=== PATIENT | female | born 1975 | race Caucasian/White ===

== ENCOUNTER → 2016-10-14 | Outpatient (REF) | payer OTHER ==
[2016-10-14 13:21] LABS: MEAN CORPUSCULAR HEMOGLOBIN 28.5 pg (27.0-33.0); MEAN CORPUSCULAR HGB CONC 33.3 g/dl (32.0-36.5); MEAN CORPUSCULAR VOLUME 85.4 fl (80.0-96.0); RED CELL DISTRIBUTION WIDTH 12.8 % (11.5-14.5); WHITE BLOOD COUNT 7.9 K/mm3 (4.0-10.0)
[2016-10-14 14:15] LABS: ALBUMIN 4.3 GM/DL (3.2-5.2); ALBUMIN/GLOBULIN RATIO 1.26 (1.00-1.93); ALKALINE PHOSPHATASE 39 U/L (45-117); ALT/SGPT 38 U/L (12-78); ANION GAP 6 MEQ/L (8-16); AST/SGOT 14 U/L (15-37); BILIRUBIN,TOTAL 0.4 MG/DL (0.2-1.0); BLOOD UREA NITROGEN 13 MG/DL (7-18); CALCIUM LEVEL 9.1 MG/DL (8.5-10.1); CARBON DIOXIDE LEVEL 31 MEQ/L (21-32); CHLORIDE LEVEL 106 MEQ/L (98-107); CHOLESTEROL LEVEL 163 MG/DL (<200); CREATININE FOR GFR 0.89 MG/DL (0.55-1.02); GLOMERULAR FILTRATION RATE > 60.0 (>58); GLUCOSE, FASTING 99 MG/DL (70-105); POTASSIUM SERUM 4.1 MEQ/L (3.5-5.1); SODIUM LEVEL 143 MEQ/L (136-145); T UPTAKE 33 % (30-39); THYROXINE (T4) 9.8 UG/DL (4.5-12.0); TOTAL PROTEIN 7.7 GM/DL (6.4-8.2); TRIGLYCERIDES LEVEL 69 MG/DL (<150)
[2016-10-16 00:07] LABS: Lyme Disease IgG Ab 18 kDa Ban Absent (.); Lyme Disease IgG Ab 23 kDa Ban Absent (.); Lyme Disease IgG Ab 28 kDa Ban Absent (.); Lyme Disease IgG Ab 30 kDa Ban Absent (.); Lyme Disease IgG Ab 39 kDa Ban Absent (.); Lyme Disease IgG Ab 41 kDa Ban Present (.); Lyme Disease IgG Ab 45 kDa Ban Absent (.); Lyme Disease IgG Ab 58 kDa Ban Absent (.); Lyme Disease IgG Ab 66 kDa Ban Absent (.); Lyme Disease IgG Ab 93 kDa Ban Absent (.); Lyme Disease IgG West Blot Int Negative (.); Lyme Disease IgG/IgM Antibodie <0.91 ISR (0.00-0.90); Lyme Disease IgM Ab 23 kDa Ban Present (.); Lyme Disease IgM Ab 39 kDa Ban Absent (.); Lyme Disease IgM Ab 41 kDa Ban Present (.); Lyme Disease IgM West Blot Int Positive (.)
== END ==
LOC: M SFHCCLAY 09:11
PROVIDERS: ATTEND Nurse Practitioner Family
DX: M25.50 Pain in unspecified joint (principal); R53.83 Other fatigue; Z13.6 Encounter for screening for cardiovascular disorders; J02.9 Acute pharyngitis, unspecified

== ENCOUNTER → 2017-01-20 | Outpatient (REF) | payer OTHER ==
[~2017-01-20] MED LIST: AMOX PO; BACT800T5 PO; CETI10TA; FLUT1SPR2
[2017-01-20 18:03] LABS: MEAN CORPUSCULAR HEMOGLOBIN 27.9 pg (27.0-33.0); MEAN CORPUSCULAR HGB CONC 33.6 g/dl (32.0-36.5); RED CELL DISTRIBUTION WIDTH 12.8 % (11.5-14.5)
[2017-01-20 18:07] LABS: ALBUMIN 4.3 GM/DL (3.2-5.2); ALBUMIN/GLOBULIN RATIO 1.13 (1.00-1.93); ALKALINE PHOSPHATASE 44 U/L (45-117); ALT/SGPT 37 U/L (12-78); ANION GAP 7 MEQ/L (8-16); AST/SGOT 16 U/L (15-37); BILIRUBIN,TOTAL 0.5 MG/DL (0.2-1.0); BLOOD UREA NITROGEN 13 MG/DL (7-18); CALCIUM LEVEL 9.2 MG/DL (8.5-10.1); CARBON DIOXIDE LEVEL 30 MEQ/L (21-32); CHLORIDE LEVEL 103 MEQ/L (98-107); CREATININE FOR GFR 0.82 MG/DL (0.55-1.02); GLOMERULAR FILTRATION RATE > 60.0 (>58); GLUCOSE, FASTING 80 MG/DL (70-105); POTASSIUM SERUM 3.9 MEQ/L (3.5-5.1); SODIUM LEVEL 140 MEQ/L (136-145); TOTAL PROTEIN 8.1 GM/DL (6.4-8.2); URIC ACID 6.4 MG/DL (2.6-6.0)
== END ==
LOC: M SFHCCLAY 12:28
PROVIDERS: ATTEND Nurse Practitioner Family
DX: R50.9 Fever, unspecified (principal); M25.50 Pain in unspecified joint

== ENCOUNTER 2017-01-22 10:49 | Emergency (ER) | payer OTHER ==
[~2017-01-22] VITALS: Ht 167.6 cm; Wt 94.5 kg
[2017-01-22] MEDS ORDERED: CETI10TA (11:02)
[2017-01-22] MEDS ORDERED: FLUT1SPR2 (11:02)
[2017-01-22] MEDS ORDERED: AMOX PO (11:02)
[2017-01-22 11:50] LABS: BASO % 0.3 % (0.0-1.0); EOS # 0.2 10^3/uL (0.0-0.50); EOS % 2.7 % (0.0-3.0); IMMATURE GRANULOCYTE % 0.2 % (0-0); LYMPH # 1.3 10^3/uL (1.5-4.5); LYMPH % 14.4 % (24.0-44.0); MEAN CORPUSCULAR HEMOGLOBIN 27.8 pg (27.0-33.0); MEAN CORPUSCULAR HGB CONC 33.7 g/dl (32.0-36.5); MEAN CORPUSCULAR VOLUME 82.7 fl (80.0-96.0); MONO # 0.9 10^3/uL (0.0-0.8); MONO % 9.9 % (0.0-5.0); NEUTROPHILS # 6.4 10^3/uL (1.8-7.7); NEUTROPHILS % 72.5 % (36.0-66.0); PLATELET COUNT, AUTOMATED 226 10^3/uL (150-450); RED CELL DISTRIBUTION WIDTH 12.8 % (11.5-14.5); WHITE BLOOD COUNT 8.9 10^3/uL (4.0-10.0)
[2017-01-22 11:54] LABS: ADD MANUAL DIFFER NO; DIFF SLIDE NUMBER 147
[2017-01-22 12:19] LABS: ANION GAP 5 MEQ/L (8-16); BLOOD UREA NITROGEN 11 MG/DL (7-18); CARBON DIOXIDE LEVEL 29 MEQ/L (21-32); CHLORIDE LEVEL 106 MEQ/L (98-107); CREATININE FOR GFR 0.63 MG/DL (0.55-1.02); GLOMERULAR FILTRATION RATE > 60.0 (>58); GLUCOSE, FASTING 94 MG/DL (70-105); POTASSIUM SERUM 4.1 MEQ/L (3.5-5.1); SODIUM LEVEL 140 MEQ/L (136-145)
[2017-01-22] MEDS ORDERED: BACT800T5 PO (12:38)
[2017-01-22 12:51] VITALS: BP 136/90
== END 2017-01-22 12:59 | disposition home or self-care (01) ==
LOC: M ED 10:49
DX: L03.116 Cellulitis of left lower limb (principal); J31.0 Chronic rhinitis; A69.20 Lyme disease, unspecified; Z88.1 Allergy status to other antibiotic agents

== ENCOUNTER → 2017-02-01 | Outpatient (REF) | payer OTHER ==
[2017-02-01 16:22] LABS: BASO # 0.1 10^3/uL (0.0-0.2); BASO % 1.2 % (0.0-1.0); EOS # 0.4 10^3/uL (0.0-0.50); EOS % 6.5 % (0.0-3.0); IMMATURE GRANULOCYTE % 0.6 % (0-0); LYMPH # 2.2 10^3/uL (1.5-4.5); LYMPH % 32.6 % (24.0-44.0); MEAN CORPUSCULAR HEMOGLOBIN 27.2 pg (27.0-33.0); MEAN CORPUSCULAR HGB CONC 32.3 g/dl (32.0-36.5); MEAN CORPUSCULAR VOLUME 84.2 fl (80.0-96.0); MONO # 0.6 10^3/uL (0.0-0.8); MONO % 9.3 % (0.0-5.0); NEUTROPHILS # 3.4 10^3/uL (1.8-7.7); NEUTROPHILS % 49.8 % (36.0-66.0); PLATELET COUNT, AUTOMATED 320 10^3/uL (150-450); RED CELL DISTRIBUTION WIDTH 12.8 % (11.5-14.5); WHITE BLOOD COUNT 6.8 10^3/uL (4.0-10.0)
[2017-02-01 16:51] LABS: ERYTHROCYTE SEDIMENTATION RATE 14 mm/hr (0-20)
== END ==
LOC: M SFHCCLAY 14:04
PROVIDERS: ATTEND Family Medicine
DX: L03.116 Cellulitis of left lower limb (principal)

== ENCOUNTER → 2017-02-03 | Outpatient (REF) | payer OTHER ==
[2017-02-03 14:01] LABS: FOLATE 10.2 NG/ML (>5.4); VITAMIN B12 LEVEL 1015 PG/ML (247-911)
[2017-02-03 14:20] LABS: FREE T4 0.99 NG/DL (0.76-1.46); TOTAL PROTEIN 8.2 GM/DL (6.4-8.2)
[2017-02-04 13:58] LABS: ALBUMIN % 59.5 % (55.8-66.1); GAMMA GLOBULIN % 16.3 % (11.1-18.8)
[2017-02-04 13:59] LABS: ALBUMIN 4.88 GM/DL (3.29-5.55)
[2017-02-08 00:11] LABS: Lyme Disease IgG Ab 18 kDa Ban Absent (.); Lyme Disease IgG Ab 23 kDa Ban Absent (.); Lyme Disease IgG Ab 28 kDa Ban Absent (.); Lyme Disease IgG Ab 30 kDa Ban Absent (.); Lyme Disease IgG Ab 39 kDa Ban Absent (.); Lyme Disease IgG Ab 41 kDa Ban Present (.); Lyme Disease IgG Ab 45 kDa Ban Absent (.); Lyme Disease IgG Ab 58 kDa Ban Present (.); Lyme Disease IgG Ab 66 kDa Ban Absent (.); Lyme Disease IgG Ab 93 kDa Ban Absent (.); Lyme Disease IgG West Blot Int Negative (.); Lyme Disease IgG/IgM Antibodie <0.91 ISR (0.00-0.90); Lyme Disease IgM Ab 23 kDa Ban Present (.); Lyme Disease IgM Ab 39 kDa Ban Absent (.); Lyme Disease IgM Ab 41 kDa Ban Present (.); Lyme Disease IgM Ab Quantitati 1.08 index (0.00-0.79); Lyme Disease IgM West Blot Int Positive (.); SJOGREN'S ANTI SS-A <0.2 AI (0.0-0.9); SJOGREN'S ANTI SS-B <0.2 AI (0.0-0.9); VITAMIN E LEVEL 8.4 mg/L (5.3-16.8)
== END ==
LOC: M LABNEURO 10:04
PROVIDERS: ATTEND Psychiatry & Neurology Neurology
DX: R53.1 Weakness (principal); R20.2 Paresthesia of skin; R41.3 Other amnesia; M35.9 Systemic involvement of connective tissue, unspecified

== ENCOUNTER → 2017-03-03 | Outpatient (REF) | payer OTHER ==
[2017-03-03 16:07] LABS: ALBUMIN 4.6 GM/DL (3.2-5.2); ALBUMIN/GLOBULIN RATIO 1.44 (1.00-1.93); ALKALINE PHOSPHATASE 41 U/L (45-117); ALT/SGPT 34 U/L (12-78); ANION GAP 7 MEQ/L (8-16); AST/SGOT 13 U/L (7-37); BILIRUBIN,TOTAL 0.5 MG/DL (0.2-1.0); BLOOD UREA NITROGEN 10 MG/DL (7-18); CALCIUM LEVEL 9.9 MG/DL (8.5-10.1); CARBON DIOXIDE LEVEL 30 MEQ/L (21-32); CHLORIDE LEVEL 105 MEQ/L (98-107); CREATININE FOR GFR 0.84 MG/DL (0.55-1.02); GLOMERULAR FILTRATION RATE > 60.0 (>58); GLUCOSE, FASTING 78 MG/DL (70-105); IMMUNOGLOBULIN G 1200 MG/DL (681-1648); IMMUNOGLOBULIN M 212 MG/DL (40-230); POTASSIUM SERUM 3.9 MEQ/L (3.5-5.1); SODIUM LEVEL 142 MEQ/L (136-145); TOTAL PROTEIN 7.8 GM/DL (6.4-8.2)
== END ==
LOC: M SFHCPLAZ 12:25
PROVIDERS: ATTEND Internal Medicine Infectious Disease
DX: L03.90 Cellulitis, unspecified (principal); J32.9 Chronic sinusitis, unspecified; M54.5 Low back pain; Z86.19 Personal history of other infectious and parasitic diseases

== ENCOUNTER → 2017-03-11 | Outpatient (CLI) | payer OTHER ==
[~2017-03-11] MED LIST changes: +GASTROGRAFIN SOLUTION 30ML (Q9963) As Ordered ONE; +ISOVUE-370 76% 100ML VIAL (Q9967) As Ordered ONE
--- NOTE | 2017-03-11 20:54 | REP ---
CT ABDOMEN AND PELVIS WITH AND WITHOUT CONTRAST: TECHNIQUE: Axial noncontrast images through the abdomen followed by contrast-enhanced images through the abdomen and pelvis using 100 mL Isovue 370 intravenous contrast material, with coronal and sagittal reformations. There is mild interstitial fibrotic change in the visualized lung bases. There is diffuse fatty infiltration of the liver. Gallbladder is grossly unremarkable. There does not appear to be a significant biliary dilatation. The spleen, adrenals, pancreas and left kidney appear unremarkable. There is no hydronephrosis bilaterally. There is a subcentimeter calculus in the lower pole collecting system of the right kidney. Ureters do not appear to be dilated. Urinary bladder is distended with no gross abnormality. There is no abdominal aortic aneurysm. There is no adenopathy. There is no free air or free fluid. I see no bowel wall thickening. I see no pelvic mass. IMPRESSION: Diffuse fatty infiltration of the liver. Subcentimeter calculus lower pole collecting system right kidney. No adenopathy. No free air or free fluid. No bowel wall thickening or inflammation. No pelvic mass. Signed by Dre Gutierrez MD 03/12/2017 11:56 A
== END ==
LOC: M RAD 17:27
PROVIDERS: ATTEND Internal Medicine Infectious Disease
DX: K76.0 Fatty (change of) liver, not elsewhere classified (principal); N20.0 Calculus of kidney
CPT/HCPCS: 74178; Q9963; Q9967

== ENCOUNTER → 2017-04-06 | Outpatient (REF) | payer OTHER ==
[~2017-04-06] MED LIST changes: -GASTROGRAFIN SOLUTION 30ML (Q9963) As Ordered ONE; -ISOVUE-370 76% 100ML VIAL (Q9967) As Ordered ONE
== END ==
LOC: M SFHCPLAZ 10:53
PROVIDERS: ATTEND Internal Medicine Infectious Disease
DX: R06.02 Shortness of breath (principal)

== ENCOUNTER → 2017-04-20 | Outpatient (CLI) | payer OTHER | LOC: M RAD 16:26 | DX: J84.10 Pulmonary fibrosis, unspecified (principal); K76.1 Chronic passive congestion of liver | CPT/HCPCS: 71250 ==

== ENCOUNTER → 2017-11-09 | Outpatient (CLI) | payer OTHER | LOC: M RAD 14:15 | DX: J32.0 Chronic maxillary sinusitis (principal) | CPT/HCPCS: 70486 ==

== ENCOUNTER → 2017-11-28 | Outpatient (CLI) | payer OTHER ==
[2017-11-28 12:16] LABS: HEMATOCRIT 43.5 % (36.0-47.0); HEMOGLOBIN 14.5 g/dl (12.0-15.5); MEAN CORPUSCULAR HEMOGLOBIN 27.6 pg (27.0-33.0); MEAN CORPUSCULAR HGB CONC 33.3 g/dl (32.0-36.5); MEAN CORPUSCULAR VOLUME 82.7 fl (80.0-96.0); PLATELET COUNT, AUTOMATED 276 10^3/uL (150-450); RED BLOOD COUNT 5.26 10^6/uL (4.00-5.40); RED CELL DISTRIBUTION WIDTH 13.1 % (11.5-14.5); RETIC HEMOGLOBIN EQUIVALENT 33.1 pg (24-36); RETICULOCYTE % 1.9 % (0.5-1.5); WHITE BLOOD COUNT 6.9 10^3/uL (4.0-10.0)
[2017-11-28 12:32] LABS: TOTAL 25(OH) VITAMIN D 27.9 NG/ML (30.0-100.0)
[2017-11-28 12:39] LABS: ALBUMIN 4.1 GM/DL (3.2-5.2); ALBUMIN/GLOBULIN RATIO 1.21 (1.00-1.93); ALKALINE PHOSPHATASE 37 U/L (45-117); ALT/SGPT 39 U/L (12-78); ANION GAP 7 MEQ/L (8-16); AST/SGOT 13 U/L (7-37); BILIRUBIN,TOTAL 0.4 MG/DL (0.2-1.0); BLOOD UREA NITROGEN 12 MG/DL (7-18); CARBON DIOXIDE LEVEL 30 MEQ/L (21-32); CHLORIDE LEVEL 109 MEQ/L (98-107); CHOLESTEROL LEVEL 168 MG/DL (<200); CHOLESTEROL RISK RATIO 2.896 (<5); CREATININE FOR GFR 0.84 MG/DL (0.55-1.30); FERRITIN 101 NG/ML (8-252); GLOMERULAR FILTRATION RATE > 60.0 (>58); GLUCOSE, FASTING 93 MG/DL (70-100); HDL CHOLESTEROL 58 MG/DL (>40); IRON (FE) 71 UG/DL (50-170); MAGNESIUM LEVEL 2.4 MG/DL (1.8-2.4); NON-HDL-C 110 MG/DL; PERCENT SATURATION 25.3 % (13.2-45.0); POTASSIUM SERUM 4.1 MEQ/L (3.5-5.1); SODIUM LEVEL 146 MEQ/L (136-145); TOTAL IRON BINDING CAPACITY 281 UG/DL (250-450); TOTAL PROTEIN 7.5 GM/DL (6.4-8.2); TRIGLYCERIDES LEVEL 100 MG/DL (<150)
[2017-11-28 13:09] LABS: ESTIMATED AVERAGE GLUCOSE 117 MG/DL (60-110); HEMOGLOBIN A1c 5.7 %
[2017-11-28 14:17] LABS: FOLATE 12.2 NG/ML
[2017-11-28 14:18] LABS: VITAMIN B12 LEVEL 657 PG/ML
== END ==
LOC: M LAB 11:07
DX: R53.82 Chronic fatigue, unspecified (principal); Z13.6 Encounter for screening for cardiovascular disorders
CPT/HCPCS: 82746

== ENCOUNTER 2017-12-24 18:39 | Emergency (ER) | payer OTHER ==
[2017-12-24] MEDS: valACYclovir HCL 500 MG TAB PO (19:15)
== END 2017-12-24 19:24 | disposition home or self-care (01) ==
LOC: M ED 18:39
DX: B02.9 Zoster without complications (principal); F41.9 Anxiety disorder, unspecified; Z87.891 Personal history of nicotine dependence; Z79.899 Other long term (current) drug therapy; Z88.1 Allergy status to other antibiotic agents
CPT/HCPCS: 99282

== ENCOUNTER → 2018-02-28 | Outpatient (CLI) | payer OTHER | LOC: M CLY 12:03 | DX: M51.37 Other intervertebral disc degeneration, lumbosacral region (principal) | CPT/HCPCS: 72110 ==

== ENCOUNTER 2018-04-22 15:08 | Emergency (ER) | payer OTHER ==
[~2018-04-22] VITALS: Ht 165.1 cm; Wt 95.3 kg
[2018-04-22 15:08] VITALS: BP 145/82
[~2018-04-22 15:08] MED LIST changes: +DULO1CAP2; +VALA1TAB2 PO
[2018-04-22] MEDS ORDERED: GABA-845 PO (15:14)
[2018-04-22] MEDS ORDERED: VITA-122 PO (15:30)
[2018-04-22] MEDS ORDERED: VALA1TAB2 PO (15:56)
== END 2018-04-22 17:09 | disposition home or self-care (01) ==
LOC: M ED 15:08
DX: B02.9 Zoster without complications (principal); Z87.891 Personal history of nicotine dependence; Z79.899 Other long term (current) drug therapy; Z88.1 Allergy status to other antibiotic agents

== ENCOUNTER → 2018-05-02 | Outpatient (REF) | payer OTHER ==
[~2018-05-02] MED LIST changes: +GABA-845 PO; +VITA-122 PO
[2018-05-06 00:08] LABS: MERCURY LEVEL None Detected ug/L (0.0-14.9)
== END ==
LOC: M SFHCCLAY 12:19
PROVIDERS: ATTEND Nurse Practitioner Family
DX: R53.83 Other fatigue (principal); E55.9 Vitamin D deficiency, unspecified

== ENCOUNTER 2018-05-16 16:17 | Emergency (ER) | payer OTHER ==
[~2018-05-16] VITALS: Ht 165.1 cm; Wt 96.4 kg
[2018-05-16] MEDS ORDERED: IBUPROFEN 600 MG TAB PO ONE (18:30)
[2018-05-16] MEDS ORDERED: traMADol 50 MG TAB PO ONE (18:30)
--- NOTE | 2018-05-16 18:48 | REPVR ---
EXAM: CT Cervical Spine Without Contrast EXAM DATE/TIME: 05/16/2018 6:24 PM CLINICAL HISTORY: 43 years old, female; Injury or trauma; Fall; Initial encounter; Blunt trauma; Additional info: Fall, PT tender, decr. Rom TECHNIQUE: Axial computed tomography images of the cervical spine without intravenous contrast. All CT scans at this facility use at least one of these dose optimization techniques: automated exposure control; mA and/or kV adjustment per patient size (includes targeted exams where dose is matched to clinical indication); or iterative reconstruction. Coronal and sagittal reformatted images were created and reviewed. COMPARISON: CR SPINE LS COMPLETE 02/28/2018 1:39 PM FINDINGS: Vertebrae: Mild degenerative disc disease and facet arthrosis at C6-C7. No fracture or subluxation. Discs/Spinal canal/Neural foramina: No spinal or neural foraminal bony stenosis. Soft tissues: Unremarkable. Lungs: Lung apices are normal. IMPRESSION: No fracture. Electronically signed by: Antoni Sanon On 05/16/2018 18:48:07 PM
[2018-05-16 19:34] VITALS: BP 133/95
--- NOTE | 2018-05-16 19:49 | REP ---
RIGHT WRIST, FOUR VIEWS: There is no evidence of an acute fracture, dislocation or intrinsic bone disease. IMPRESSION: No fracture or dislocation. Electronically Signed by Dre Gutierrez MD 05/16/2018 07:56 P
--- NOTE | 2018-05-16 19:51 | REP ---
RIGHT ANKLE, FOUR VIEWS: There is no evidence of an acute fracture, dislocation or intrinsic bone disease. There is moderate spurring of the posterior and inferior calcaneus. IMPRESSION: No fracture or dislocation. Electronically Signed by Dre Gutierrez MD 05/16/2018 07:56 P
--- NOTE | 2018-05-16 19:52 | REP ---
RIGHT SHOULDER, THREE VIEWS: There is no evidence of an acute fracture, dislocation or intrinsic bone disease. IMPRESSION: No fracture or dislocation. Electronically Signed by Dre Gutierrez MD 05/16/2018 07:57 P
--- NOTE | 2018-05-16 19:53 | REP ---
LEFT KNEE, FOUR VIEWS: FINDINGS: There is no evidence of an acute fracture, dislocation or intrinsic bone disease. IMPRESSION: No fracture or dislocation. Electronically Signed by Dre Gutierrez MD 05/16/2018 07:57 P
== END 2018-05-16 19:35 | disposition home or self-care (01) ==
LOC: M ED 16:17
DX: T14.8XXA Other injury of unspecified body region, initial encounter (principal); W01.0XXA Fall on same level from slipping, tripping and stumbling without subsequent striking against object, initial encounter; Y92.512 Supermarket, store or market as the place of occurrence of the external cause; Z88.1 Allergy status to other antibiotic agents; Z79.899 Other long term (current) drug therapy

== ENCOUNTER → 2018-06-14 | Outpatient (REF) | payer OTHER ==
[2018-06-14 17:19] LABS: HEMATOCRIT 43.6 % (36.0-47.0); HEMOGLOBIN 14.4 g/dl (12.0-15.5); MEAN CORPUSCULAR HEMOGLOBIN 27.7 pg (27.0-33.0); MEAN CORPUSCULAR VOLUME 83.8 fl (80.0-96.0); PLATELET COUNT, AUTOMATED 286 10^3/uL (150-450); WHITE BLOOD COUNT 8.1 10^3/uL (4.0-10.0)
[2018-06-14 17:30] LABS: ALBUMIN 4.2 GM/DL (3.2-5.2); ALT/SGPT 29 U/L (12-78); BILIRUBIN,TOTAL 0.3 MG/DL (0.2-1.0); BLOOD UREA NITROGEN 13 MG/DL (7-18); CALCIUM LEVEL 9.1 MG/DL (8.5-10.1); CARBON DIOXIDE LEVEL 30 MEQ/L (21-32); CHLORIDE LEVEL 108 MEQ/L (98-107); CHOLESTEROL LEVEL 157 MG/DL (<200); CHOLESTEROL RISK RATIO 2.754 (<5); FREE THYROXINE INDEX 2.8 % (1.3-4.8); GLOMERULAR FILTRATION RATE > 60.0 (>58); GLUCOSE, FASTING 79 MG/DL (70-100); HDL CHOLESTEROL 57 MG/DL (>40); LDL CHOLESTEROL 83 MG/DL (<100); NON-HDL-C 100 MG/DL; POTASSIUM SERUM 4.1 MEQ/L (3.5-5.1); SODIUM LEVEL 142 MEQ/L (136-145); T UPTAKE 31 % (30-39); THYROXINE (T4) 8.9 UG/DL (4.5-12.0); TOTAL PROTEIN 7.4 GM/DL (6.4-8.2); TRIGLYCERIDES LEVEL 86 MG/DL (<150)
[2018-06-14 17:31] LABS: TOTAL 25(OH) VITAMIN D 34.6 NG/ML (30.0-100.0)
== END ==
LOC: M SFHCCLAY 11:41
PROVIDERS: ATTEND Nurse Practitioner Family
DX: K21.9 Gastro-esophageal reflux disease without esophagitis (principal); F41.9 Anxiety disorder, unspecified; E55.9 Vitamin D deficiency, unspecified; R53.82 Chronic fatigue, unspecified; Z13.6 Encounter for screening for cardiovascular disorders

== ENCOUNTER → 2018-06-15 | Outpatient (CLI) | payer OTHER ==
--- NOTE | 2018-06-19 16:25 | SLEEPHOME ---
DATE OF PROCEDURE: 06/15/2018 ORDERED BY: Adri Parham Diagnostic home sleep testing was performed due to concern for the obstructive sleep apnea syndrome in this patient with a history of excessive somnolence, nonrestorative sleep and morning headaches. For testing, a nocturnal T3 respiratory monitoring device was used. Continuous record was made of pulse, oxygen saturation, airflow, chest, abdominal strain and body position. 9 hours and 59 minutes of data were reviewed. 8 hours and 26 minutes were marked as time in bed. During the interval marked time in bed, there was 65 respiratory events identified of 10 seconds in duration or greater for a respiratory event index of 10.1. The events were primarily obstructive. Baseline pulse rate 72 beats per minute, pulse rate ranged 54-103. Baseline saturation 90%, saturations (sats) fell as low as 76%. Testing was performed in both the supine and nonsupine positions. IMPRESSION: Abnormal home sleep testing with repetitive respiratory events and oxygen desaturations to 76% with a respiratory event index of 10.1 is consistent with the obstructive sleep apnea syndrome. RECOMMENDATIONS: The patient should be encouraged to undergo a formal sleep evaluation and in laboratory pressure titration.
== END ==
LOC: M SLEEP HO 09:50
PROVIDERS: ATTEND Nurse Practitioner Family
DX: R06.83 Snoring (principal); R40.0 Somnolence

== ENCOUNTER → 2018-07-11 | Outpatient (CLI) | payer OTHER ==
--- NOTE | 2018-07-11 15:00 | REP ---
MAXILLOFACIAL CT WITHOUT CONTRAST: HISTORY: Chronic maxillary sinusitis. COMPARISON: 11/09/2017. A small defect is present in the left uncinate process. This may be due to demineralization secondary to chronic sinusitis. Mild mucosal thickening is present in the left maxillary sinus. The remaining sinuses are clear. Mucosal thickening involves the left osteomeatal unit. The right osteomeatal unit is patent. The middle and inferior nasal turbinates are partially paradoxical. There is mild deviation of the nasal septum to the right. The nasal septum abuts the right inferior nasal turbinate. The cribriform plate, medial jade of the orbits and optic canals are intact. The carotid canals form a segment of the posterolateral jade of the sphenoid sinus. There is thickening and sclerosis of the jade of the left maxillary sinus consistent with chronic sinusitis. Periapical lucency involves the first molar tooth of the left maxilla. There is dehiscence of the lingular cortex. A defect is present in the floor of the left maxillary sinus consistent with an oroantral fistula. IMPRESSION: 1. Sinus mucosal thickening as described above. 2. There is a defect in the floor of the left maxillary sinus in the first molar region consistent with an oroantral fistula. Electronically Signed by Adama Baldwin MD 07/11/2018 03:04 P
== END ==
LOC: M RAD 14:10
PROVIDERS: ATTEND Otolaryngology
DX: J32.0 Chronic maxillary sinusitis (principal); J34.89 Other specified disorders of nose and nasal sinuses

== ENCOUNTER → 2018-10-02 | Outpatient (CLI) | payer OTHER ==
[2018-10-02 10:42] LABS: MONO SCRN NEGATIVE (NEGATIVE)
[2018-10-02 10:45] LABS: C REACTIVE PROTEIN QUANTITATIV 0.53 MG/DL (0.00-0.30); FREE THYROXINE INDEX 3.2 % (1.3-4.8); RHEUMATOID FACTOR QUANT < 10.0 IU/ML (<15.0); T UPTAKE 32 % (30-39); THYROXINE (T4) 9.9 UG/DL (4.5-12.0); URIC ACID 6.5 MG/DL (2.6-6.0)
[2018-10-03 10:34] LABS: DRVV SCREEN 37.9 SEC
[2018-10-03 10:35] LABS: PTT LUPUS TYPE ANTICOAG SCREEN 0.9 (0-1.2)
[2018-10-04 14:09] LABS: ANA (HEP2) Negative (.); Lyme Disease IgG Ab 18 kDa Ban Absent (.); Lyme Disease IgG Ab 23 kDa Ban Absent (.); Lyme Disease IgG Ab 28 kDa Ban Absent (.); Lyme Disease IgG Ab 30 kDa Ban Absent (.); Lyme Disease IgG Ab 39 kDa Ban Absent (.); Lyme Disease IgG Ab 41 kDa Ban Present (.); Lyme Disease IgG Ab 45 kDa Ban Absent (.); Lyme Disease IgG Ab 58 kDa Ban Absent (.); Lyme Disease IgG Ab 66 kDa Ban Absent (.); Lyme Disease IgG Ab 93 kDa Ban Absent (.); Lyme Disease IgG West Blot Int Negative (.); Lyme Disease IgG/IgM Antibodie <0.91 ISR (0.00-0.90); Lyme Disease IgM Ab 23 kDa Ban Present (.); Lyme Disease IgM Ab 39 kDa Ban Present (.); Lyme Disease IgM Ab 41 kDa Ban Present (.); Lyme Disease IgM Ab Quantitati 0.98 index (0.00-0.79); Lyme Disease IgM West Blot Int Positive (.)
== END ==
LOC: M LAB 09:34
PROVIDERS: ATTEND Nurse Practitioner Family
DX: M25.50 Pain in unspecified joint (principal); R53.83 Other fatigue

== ENCOUNTER 2018-10-08 21:13 | Emergency (ER) | payer OTHER ==
[~2018-10-08] VITALS: Ht 165.1 cm; Wt 100.0 kg
[2018-10-08] MEDS ORDERED: AMOX875T (21:30)
[2018-10-08 21:50] LABS: BASO # 0.1 10^3/uL (0.0-0.2); BASO % 0.8 % (0.0-1.0); EOS # 0.3 10^3/uL (0.0-0.50); EOS % 2.8 % (0.0-3.0); HEMATOCRIT 41.9 % (36.0-47.0); HEMOGLOBIN 14.1 g/dl (12.0-15.5); LYMPH # 2.8 10^3/uL (1.5-4.5); LYMPH % 30.9 % (24.0-44.0); MEAN CORPUSCULAR HEMOGLOBIN 27.3 pg (27.0-33.0); MEAN CORPUSCULAR HGB CONC 33.7 g/dl (32.0-36.5); NEUTROPHILS # 4.9 10^3/uL (1.8-7.7); NEUTROPHILS % 54.3 % (36.0-66.0); PLATELET COUNT, AUTOMATED 281 10^3/uL (150-450); RED BLOOD COUNT 5.17 10^6/uL (4.00-5.40)
[2018-10-08] MEDS ORDERED: ASPIRIN 81 MG CHEW TABLET PO ONE (22:00)
[2018-10-08] MEDS ORDERED: GI COCKTAIL 50ML BTL(HYOSCYAMINE/MAALOX/LIDOCAINE VISCOUS)(1:3:1) PO ONE (22:00)
[2018-10-08 22:04] LABS: HCG, SERUM QUALITATIVE NEGATIVE (NEGATIVE)
[2018-10-08 22:19] LABS: ALBUMIN 4.2 GM/DL (3.2-5.2); ALT/SGPT 62 U/L (12-78); BILIRUBIN,DIRECT 0.1 MG/DL (0.0-0.2); BILIRUBIN,TOTAL 0.2 MG/DL (0.2-1.0); BLOOD UREA NITROGEN 13 MG/DL (7-18); CALCIUM LEVEL 9.2 MG/DL (8.5-10.1); CARBON DIOXIDE LEVEL 30 MEQ/L (21-32); CHLORIDE LEVEL 105 MEQ/L (98-107); CK-MB VALUE MASS 2.7 NG/ML (<3.6); CPK CREATINE PHOSPHOKINASE 170 U/L (26-192); CREATININE FOR GFR 0.92 MG/DL (0.55-1.30); FREE T4 0.92 NG/DL (0.76-1.46); GLOMERULAR FILTRATION RATE > 60.0 (>58); GLUCOSE, FASTING 106 MG/DL (70-100); LIPASE 243 U/L (73-393); MB/CK RELATIVE INDEX 1.59 (< OR =4); POTASSIUM SERUM 3.6 MEQ/L (3.5-5.1); SODIUM LEVEL 142 MEQ/L (136-145); TOTAL PROTEIN 7.6 GM/DL (6.4-8.2); TROPONIN I < 0.02 NG/ML (< 0.10)
[2018-10-08] MEDS ORDERED: ISOVUE-370 76% 100ML VIAL (Q9967) As Ordered ONE (22:45)
--- NOTE | 2018-10-08 23:46 | REPVR ---
EXAM: CT Angiography Chest With Contrast EXAM DATE/TIME: 10/08/2018 10:50 PM CLINICAL HISTORY: 43 years old, female; Chest pain; Type not specified; Additional info: Chest/abd pain TECHNIQUE: Imaging protocol: Axial computed tomographic angiography images of the chest with intravenous contrast using CT angiography protocol. Coronal and sagittal reformatted images were created and reviewed. 3D rendering: MIP reconstructed images were created and reviewed. Radiation optimization: All CT scans at this facility use at least one of these dose optimization techniques: automated exposure control; mA and/or kV adjustment per patient size (includes targeted exams where dose is matched to clinical indication); or iterative reconstruction. Contrast material: ISOVUE 370; Contrast volume: 100 ml; Contrast route: IV; COMPARISON: CT Chest without contrast 04/20/2017 4:38 PM FINDINGS: Pulmonary arteries: There are no pulmonary emboli. Aorta: There is no aortic dissection or aneurysm. Lungs: Atelectasis posterior upper lobes and lung bases bilaterally. Lungs otherwise clear. Pleural space: Unremarkable. No pneumothorax. No pleural effusion. Heart: Unremarkable. No cardiomegaly. No pericardial effusion. Lymph nodes: Unremarkable. No enlarged lymph nodes. Bones/joints: Unremarkable. No acute fracture. Soft tissues: Unremarkable. IMPRESSION: 1. There is no aortic dissection or aneurysm. 2. There are no pulmonary emboli. Electronically signed by: Matthew Massey On 10/08/2018 23:46:03 PM
--- NOTE | 2018-10-08 23:53 | REPVR ---
EXAM: CT Abdomen and Pelvis With Contrast EXAM DATE/TIME: 10/08/2018 10:50 PM CLINICAL HISTORY: 43 years old, female; Abdominal pain; Generalized; Additional info: Chest/abd pain TECHNIQUE: Imaging protocol: Axial computed tomography images of the abdomen and pelvis with intravenous contrast. Coronal and sagittal reformatted images were created and reviewed. Radiation optimization: All CT scans at this facility use at least one of these dose optimization techniques: automated exposure control; mA and/or kV adjustment per patient size (includes targeted exams where dose is matched to clinical indication); or iterative reconstruction. Contrast material: ISOVUE 370; Contrast volume: 100 ml; Contrast route: IV; COMPARISON: CT ABD PELVIS W/O FOL BY WIT 03/11/2017 7:25 PM FINDINGS: ABDOMEN: Liver: There is a diffuse decrease in hepatic parenchymal density, consistent with fatty infiltration. Gallbladder and bile ducts: The gallbladder is incompletely distended. This is most likely related to incomplete fasting. Clinical correlation to exclude gallbladder pathology suggested. Pancreas: Normal. No ductal dilation. Spleen: There is mild splenomegaly with a maximum span of 13.5 centimeters. No focal abnormalities demonstrated. Adrenals: Normal. No mass. Kidneys and ureters: Normal. No hydronephrosis. Stomach and bowel: There is increased feces throughout the colon consistent with constipation. Appendix: No evidence of appendicitis. PELVIS: Bladder: Unremarkable as visualized. Reproductive: Unremarkable as visualized. ABDOMEN and PELVIS: Intraperitoneal space: Normal. No free air. No significant fluid collection. Bones/joints: No acute fracture. No dislocation. Soft tissues: Small left inguinal hernia. Vasculature: Normal. No abdominal aortic aneurysm. Lymph nodes: Normal. No enlarged lymph nodes. IMPRESSION: 1. There is a diffuse decrease in hepatic parenchymal density, consistent with fatty infiltration. 2. The gallbladder is incompletely distended. This is most likely related to incomplete fasting. Clinical correlation to exclude gallbladder pathology suggested. 3. There is mild splenomegaly with a maximum span of 13.5 centimeters. No focal abnormalities demonstrated. 4. There is increased feces throughout the colon consistent with constipation. Electronically signed by: Matthew Massey On 10/08/2018 23:53:23 PM
[2018-10-09] MEDS ORDERED: DULoxetine 20 MG CAP (CYMBALTA) PO ONE (02:15)
--- NOTE | 2018-10-09 02:30 | REPVR ---
EXAM: US Abdomen Limited, Right Upper Quadrant EXAM DATE/TIME: 10/08/18 (11:51pm) CLINICAL HISTORY: 43 year old female with epigastric pain / RUQ pain TECHNIQUE: Imaging protocol: Real-time ultrasound of the abdomen with image documentation. Examination was focused on the right upper quadrant. COMPARISON: CT ABDOMEN PELVIS of 10/08/18 FINDINGS: The liver is visually normal in size, with fatty infiltration. The gallbladder is contracted and not well visualized. The gallbladder wall measures 4.9 mm thickness (probably secondary to its contracted state. No pericholecystic fluid is appreciated. The CBD is not dilated (3.9 mm diameter). Visualized portions of the pancreas appear unremarkable. Other portions are obscured by bowel gas. The right kidney measures 11.8 cm in length, with no hydronephrosis appreciated. Non-obstructing echogenic right intrarenal stone (7 mm size). No ascites is seen. IMPRESSION: No acute pathology. The gallbladder is contracted and cannot be fully evaluated. No biliary obstruction. Visualized portions of the pancreas appear unremarkable. Non-obstructing right intrarenal stone (7 mm size). Electronically signed by: Ibeth Yuan On 10/09/2018 02:30:15 AM
[2018-10-09] MEDS ORDERED: LEVS0.124 SL (03:41)
[2018-10-09 03:45] VITALS: BP 125/85
--- NOTE | 2018-10-09 05:52 | ECGEPIP ---
[facility] - ED Test Date: 2018-10-08 Pat Name: ENOC PATEL Department: Room: - Gender: Female [employer] Machine: KEVIN : 1975 Requested By: THEODORE Nunes Order Number: [id number] Reading MD: Herman Correia Measurements Intervals [place] Rate: 69 P: 20 WV: 159 QRS: 14 QRSD: 86 T: 19 QT: 371 QTc: 399 Interpretive Statements SINUS RHYTHM NO PRIORS FOR COMPARISON Electronically Signed on 10-09-2018 5:52:04 EDT by Herman Correia
--- NOTE | 2018-10-09 07:34 | REP ---
Portable chest, 10:28 p.m., single AP upright view: There are no comparisons. The lung toth are clear. The cardiac size is normal. The gabriele, mediastinum, and skeletal structures are unremarkable. Impression: Negative portable chest. Electronically Signed by Dre Donnelly MD 10/09/2018 07:26 A
== END 2018-10-09 04:01 | disposition home or self-care (01) ==
LOC: M ED 21:13
DX: K80.50 Calculus of bile duct without cholangitis or cholecystitis without obstruction (principal); Z79.899 Other long term (current) drug therapy; Z88.1 Allergy status to other antibiotic agents
CPT/HCPCS: 71045; 71275; 74177; 76705; 80048; 80076; 82550; 82553; 83690; 84439; 84443; 84703; 85025; 93005; 93041; 94760; 99285; Q9967

== ENCOUNTER → 2018-10-12 | Outpatient (CLI) | payer OTHER ==
[~2018-10-12] MED LIST changes: +AMOX875T; +LEVS0.124 SL
--- NOTE | 2018-10-12 16:25 | REP ---
Thyroid sonography: History: Tenderness in the right side of the neck. Fatigue. Sonographic findings: Right lobe dimensions are 4.0 x 1.6 x 1.5 cm. Left thyroid lobe measures 4.1 x 1.5 x 1.2 cm. The thyroid isthmus is 0.6 cm thick. There is a tiny 0.4 cm hypoechoic nodule to the right of midline in the isthmus. No other thyroid nodule is seen. Thyroid lobes are otherwise homogeneous. Impression: No significant abnormality. 0.4 cm nodule in the right side of the isthmus. Electronically Signed by Christos John MD 10/12/2018 07:53 P
--- NOTE | 2018-10-12 16:28 | REP ---
Duplex carotid sonography: History: Fatigue. Forgetfulness. Findings: Antegrade flow is observed in both vertebral arteries. Right carotid: The right common carotid artery shows diffuse intimal thickening. There is minimal soft plaquing in the right carotid bulb and proximal ICA on two-dimensional scanning. Color flow and spectral Doppler interrogation are unremarkable on the right. Velocity chart right carotid: CCA PSV 99 cm/s ICA PSV 94 cm/s ICA EDV 35 cm/s ECA PSV 67 cm/s Right ICA/CCA ratio normal 1.04. Impression: Less than 50% narrowing in the right ICA by Doppler criteria. Left carotid: Left common carotid artery shows mild diffuse intimal thickening. There is mild soft plaquing in the bulb and proximal ICA on two-dimensional scanning. Color flow and spectral Doppler interrogation are unremarkable on the left. Velocity chart left carotid: CCA PSV 100 cm/s ICA PSV 77 cm/s ICA EDV 30 cm/s ECA PSV 101 cm/s Left ICA/CCA ratio normal 0.85. Impression: Less than 50% stenosis in the left ICA by Doppler velocity criteria. Electronically Signed by Christos John MD 10/12/2018 07:53 P
== END ==
LOC: M RAD 14:57
PROVIDERS: ATTEND Nurse Practitioner Family
DX: E04.1 Nontoxic single thyroid nodule (principal); R53.83 Other fatigue; R68.89 Other general symptoms and signs

== ENCOUNTER → 2018-10-31 | Outpatient (CLI) | payer OTHER ==
[~2018-10-31] MED LIST changes: -DULO1CAP2; +DULO1CAP5
--- NOTE | 2018-10-31 10:15 | REP ---
HEPATOBILIARY SCAN: HISTORY: Unspecified abdominal pain. Right upper quadrant pain, recurrent. Contracted appearing gallbladder on sonography October 08, 2018. TECHNIQUE: 6.6 mCi technetium 99m mebrofenin is injected, and sequential anterior abdominal images are acquired. SCINTIGRAPHIC FINDINGS: The initial hepatocellular parenchymal uptake phase shows normal homogeneous parenchymal uptake. Intrahepatic and extrahepatic bile ducts are labeled on the 10-minute image. The duodenum is labeled at 15 minutes. The gallbladder is first visualized at 25 minutes. There is normal washout from the liver parenchyma into the gallbladder and small intestine. IMPRESSION: Normal hepatobiliary scan. Electronically Signed by Christos John MD 10/31/2018 04:50 P
== END ==
LOC: M RAD 07:25
PROVIDERS: ATTEND Surgery
DX: R10.9 Unspecified abdominal pain (principal); K82.8 Other specified diseases of gallbladder
CPT/HCPCS: 78226; A9537

== ENCOUNTER → 2019-01-19 | Outpatient (CLI) | payer OTHER ==
--- NOTE | 2019-01-19 19:21 | REP ---
CT MAXILLOFACIAL WITHOUT CONTRAST: 01/19/2019. Comparison: 07/11/2018, 11/09/2017. Clinical history: Chronic maxillary sinusitis. Findings: Coronal images show that the defect in the floor of the left maxillary antrum appears to be closing. I do not have a surgical history but patent channel to the floor of the left maxillary antrum from the oropharynx is not reproduced on today's study. The adjacent first molar and apical lucency of the left maxilla have been removed in the interval. Some minor mucosal thickening further improved since the 07/11/2018 study. Septum is slightly deviated towards the right. There is a partially paradoxical appearance to the middle and inferior turbinates as before. The ostiomeatal complex on the right is patent and the left shows some minor mucosal thickening at its ostium but the channel is now patent, another improvement since the previous study. Right maxillary sinus is clear. The frontal and ethmoid air cells were clear. Sphenoid sinus shows some mucosal thickening posteriorly on the left, minimally on the right. I see no other significant or new finding. Impression: 1. Interval extraction of the left first maxillary molar and apical lucency with surgical changes at the site of the previous oroantral fistula. There is further improvement in mucosal thickening of the left maxillary sinus since the June 2018 study and near complete clearing of the mucosal thickening at the [facility] on the left. Electronically Signed by Drew Bazzi MD 01/19/2019 08:27 P
== END ==
LOC: M RAD 17:47
PROVIDERS: ATTEND Otolaryngology
DX: J32.0 Chronic maxillary sinusitis (principal)

== ENCOUNTER → 2019-02-05 | Outpatient (CLI) | payer OTHER ==
[2019-02-05 13:09] LABS: HEMATOCRIT 44.1 % (36.0-47.0); HEMOGLOBIN 14.4 g/dl (12.0-15.5); MEAN CORPUSCULAR HEMOGLOBIN 27.5 pg (27.0-33.0); MEAN CORPUSCULAR HGB CONC 32.7 g/dl (32.0-36.5); MEAN CORPUSCULAR VOLUME 84.3 fl (80.0-96.0); PLATELET COUNT, AUTOMATED 283 10^3/uL (150-450); RED BLOOD COUNT 5.23 10^6/uL (4.00-5.40); WHITE BLOOD COUNT 7.7 10^3/uL (4.0-10.0)
[2019-02-05 13:27] LABS: ALBUMIN 4.3 GM/DL (3.2-5.2); ALT/SGPT 33 U/L (12-78); BILIRUBIN,TOTAL 0.4 MG/DL (0.2-1.0); BLOOD UREA NITROGEN 15 MG/DL (7-18); CALCIUM LEVEL 9.8 MG/DL (8.5-10.1); CARBON DIOXIDE LEVEL 31 MEQ/L (21-32); CHLORIDE LEVEL 108 MEQ/L (98-107); CHOLESTEROL LEVEL 192 MG/DL (<200); CHOLESTEROL RISK RATIO 2.953 (<5); CREATININE FOR GFR 0.99 MG/DL (0.55-1.30); GLOMERULAR FILTRATION RATE > 60.0 (>58); GLUCOSE, FASTING 91 MG/DL (70-100); HDL CHOLESTEROL 65 MG/DL (>40); LDL CHOLESTEROL 108 MG/DL (<100); NON-HDL-C 127 MG/DL; POTASSIUM SERUM 4.3 MEQ/L (3.5-5.1); SODIUM LEVEL 143 MEQ/L (136-145); TOTAL PROTEIN 7.7 GM/DL (6.4-8.2); TRIGLYCERIDES LEVEL 97 MG/DL (<150)
[2019-02-05 13:36] LABS: TOTAL 25(OH) VITAMIN D 37.5 NG/ML (30.0-100.0)
== END ==
LOC: M LAB 12:32
PROVIDERS: ATTEND Nurse Practitioner Family
DX: K21.9 Gastro-esophageal reflux disease without esophagitis (principal); R03.0 Elevated blood-pressure reading, without diagnosis of hypertension; E55.9 Vitamin D deficiency, unspecified

== ENCOUNTER → 2019-05-18 | Outpatient (CLI) | payer OTHER ==
[~2019-05-18] MED LIST changes: -VALA1TAB2 PO; +VALA1TAB64 PO
--- NOTE | 2019-05-18 18:16 | REP ---
Right shoulder three views : There is no fracture or dislocation. Mineralization and joint spaces are normal. There are no calcifications or foreign bodies. Impression: Negative right shoulder Left shoulder three views : There is no fracture or dislocation. Mineralization and joint spaces are normal. There are no calcifications or foreign bodies. Impression: Negative Left shoulder . . Electronically Signed by Dre Donnelly MD 05/18/2019 06:08 P
--- NOTE | 2019-05-18 18:17 | REP ---
Cervical spine seven views: Vertebral body heights, interspacing alignment are normal C1-C7. T1 is obscured by the shoulders. There is no listhesis on flexion or extension. The facet articulations are unremarkable. The prevertebral soft tissues are unremarkable. The odontoid view is unremarkable. There is no bony foraminal encroachment. Impression: Essentially negative cervical spine C1-C7. T1 is obscured by the shoulders. Electronically Signed by Dre Donnelly MD 05/18/2019 06:09 P
== END ==
LOC: M CLY 14:55
PROVIDERS: ATTEND Nurse Practitioner Family
DX: M25.519 Pain in unspecified shoulder (principal)

== ENCOUNTER → 2019-07-10 | Outpatient (CLI) | payer OTHER ==
[~2019-07-10] MED LIST changes: +VALA1TAB5 PO; -VALA1TAB64 PO
[2019-07-10 12:17] LABS: HEMATOCRIT 44.2 % (36.0-47.0); MEAN CORPUSCULAR HEMOGLOBIN 28.5 pg (27.0-33.0); MEAN CORPUSCULAR HGB CONC 33.9 g/dl (32.0-36.5); PLATELET COUNT, AUTOMATED 273 10^3/uL (150-450); RED BLOOD COUNT 5.26 10^6/uL (4.00-5.40)
[2019-07-10 12:59] LABS: ALBUMIN 4.2 GM/DL (3.2-5.2); ALT/SGPT 25 U/L (12-78); BILIRUBIN,TOTAL 0.4 MG/DL (0.2-1.0); BLOOD UREA NITROGEN 13 MG/DL (7-18); C REACTIVE PROTEIN QUANTITATIV 0.53 MG/DL (0.00-0.30); CALCIUM LEVEL 9.5 MG/DL (8.5-10.1); CARBON DIOXIDE LEVEL 30 MEQ/L (21-32); CHLORIDE LEVEL 108 MEQ/L (98-107); CHOLESTEROL LEVEL 195 MG/DL (<200); CHOLESTEROL RISK RATIO 3.482 (<5); CREATININE FOR GFR 0.87 MG/DL (0.55-1.30); GLOMERULAR FILTRATION RATE > 60.0 (>58); GLUCOSE, FASTING 94 MG/DL (70-100); HDL CHOLESTEROL 56 MG/DL (>40); LDL CHOLESTEROL 116 MG/DL (<100); NON-HDL-C 139 MG/DL; SODIUM LEVEL 142 MEQ/L (136-145); TOTAL 25(OH) VITAMIN D 60.7 NG/ML (30.0-100.0); TOTAL PROTEIN 7.7 GM/DL (6.4-8.2); TRIGLYCERIDES LEVEL 113 MG/DL (<150); URIC ACID 6.1 MG/DL (2.6-6.0)
== END ==
LOC: M LAB 11:23
PROVIDERS: ATTEND Nurse Practitioner Family
DX: R53.82 Chronic fatigue, unspecified (principal); E78.5 Hyperlipidemia, unspecified; E55.9 Vitamin D deficiency, unspecified; E79.0 Hyperuricemia without signs of inflammatory arthritis and tophaceous disease

== ENCOUNTER → 2019-07-27 | Outpatient (CLI) | payer OTHER ==
--- NOTE | 2019-07-27 13:37 | REP ---
LEFT KNEE, FIVE VIEWS: Five views of the left knee. Five views left knee are performed. There is no acute fracture or dislocation. There is minor medial joint space narrowing. There is mild superior and inferior patellar spurring at the insertion of the quadriceps and patellar tendons. There may be a small joint effusion. IMPRESSION: Very mild degenerative changes. Possible small joint effusion. Electronically Signed by Dre Gutierrez MD 07/27/2019 01:37 P
== END ==
LOC: M RAD 11:56
PROVIDERS: ATTEND Nurse Practitioner Family
DX: M25.562 Pain in left knee (principal)

== ENCOUNTER → 2019-10-26 | Outpatient (CLI) | payer OTHER ==
[2019-10-26 11:04] LABS: ALBUMIN 4.1 GM/DL (3.2-5.2); ALT/SGPT 29 U/L (12-78); BILIRUBIN,TOTAL 0.3 MG/DL (0.2-1.0); BLOOD UREA NITROGEN 14 MG/DL (7-18); CALCIUM LEVEL 8.9 MG/DL (8.5-10.1); CARBON DIOXIDE LEVEL 30 MEQ/L (21-32); CHLORIDE LEVEL 109 MEQ/L (98-107); CHOLESTEROL LEVEL 161 MG/DL (<200); CHOLESTEROL RISK RATIO 3.037 (<5); CREATININE FOR GFR 0.86 MG/DL (0.55-1.30); GLOMERULAR FILTRATION RATE > 60.0 (>58); GLUCOSE, FASTING 100 MG/DL (70-100); HDL CHOLESTEROL 53 MG/DL (>40); LDL CHOLESTEROL 92 MG/DL (<100); NON-HDL-C 108 MG/DL; POTASSIUM SERUM 4.4 MEQ/L (3.5-5.1); SODIUM LEVEL 143 MEQ/L (136-145); TOTAL PROTEIN 7.7 GM/DL (6.4-8.2); TRIGLYCERIDES LEVEL 80 MG/DL (<150); URIC ACID 6.6 MG/DL (2.6-6.0)
[2019-10-26 11:11] LABS: TOTAL 25(OH) VITAMIN D 49.8 NG/ML (30.0-100.0)
== END ==
LOC: M LAB 09:26
PROVIDERS: ATTEND Nurse Practitioner Family
DX: E78.5 Hyperlipidemia, unspecified (principal)

== ENCOUNTER → 2019-11-06 | Outpatient (CLI) | payer OTHER ==
--- NOTE | 2019-11-06 14:10 | ECGEPIP ---
[facility] Test Date: 2019-11-06 Pat Name: ENOC PATEL Department: Room: - Gender: Female Video Tape Editor: TOMMIE : [id number] Requested By: Andre Beach Order Number: [id number] Reading MD: Adin Us Measurements Intervals [place] Rate: 59 P: 23 [place]: 164 QRS: 47 QRSD: 85 T: 16 QT: 375 QTc: 374 Interpretive Statements Sinus bradycardia Normal Electronically Signed on 11-06-2019 14:10:11 EDT by Adin Us
== END ==
LOC: M EKG 09:55
PROVIDERS: ATTEND Orthopaedic Surgery
DX: Z01.818 Encounter for other preprocedural examination (principal)

== ENCOUNTER → 2019-11-11 | Outpatient (CLI) | payer OTHER | LOC: M LABSMTC 10:20 | PROVIDERS: ATTEND Orthopaedic Surgery | DX: Z01.818 Encounter for other preprocedural examination (principal); Z11.59 Encounter for screening for other viral diseases; Z20.828 Contact with and (suspected) exposure to other viral communicable diseases ==

== ENCOUNTER 2019-12-09 15:47 | Emergency (ER) | payer OTHER ==
[2019-12-09] MEDS ORDERED: ONDANSETRON 4MG/2ML VIAL ONE (16:57)
[2019-12-09] MEDS ORDERED: ONDANSETRON 4MG/2ML VIAL As Ordered ONE (16:57)
[2019-12-09] MEDS ORDERED: DICYCLOMINE 10 MG CAP ONE (17:00)
[2019-12-09] MEDS ORDERED: DICYCLOMINE 10 MG CAP As Ordered ONE (17:00)
[2019-12-09] MEDS ORDERED: GASTROGRAFIN SOLUTION 30ML (Q9963) As Ordered ONE (17:29)
[2019-12-09] MEDS ORDERED: GASTROGRAFIN SOLUTION 30ML (Q9963) ONE (17:29)
[2019-12-09] MEDS ORDERED: ISOVUE-370 76% 100ML VIAL As Ordered ONE (18:52)
[2019-12-09] MEDS ORDERED: CIPROFLOXACIN 500MG TABLET As Ordered ONE (20:34)
[2019-12-09] MEDS ORDERED: CIPROFLOXACIN 500MG TABLET ONE (20:34)
[2020-01-21 10:54] LABS: INR 0.91; PARTIAL THROMBOPLASTIN TIME 29.2 SECONDS (24.2-38.5); PROTHROMBIN TIME 12.4 SECONDS (12.5-14.3)
[2020-01-21 10:59] LABS: APPEARANCE, URINE MANUAL CLEAR (CLEAR); COLOR, URINE MANUAL YELLOW (YELLOW); SPECIFIC GRAVITY,URINE MANUAL 1.015 (1.002-1.035)
[2020-01-21 11:00] LABS: BACTERIA, URINE SMALL AMOUNT; BILIRUBIN, URINE MANUAL NEGATIVE (NEGATIVE); BLOOD URINE MANUAL TRACE (NEGATIVE); GLUCOSE, URINE (UA) MANUAL NEGATIVE (NEGATIVE); KETONE, URINE MANUAL NEGATIVE (NEGATIVE); LEUKOCYTE ESTERASE, URINE MAN NEGATIVE (NEGATIVE); NITRITE, URINE MANUAL NEGATIVE (NEGATIVE); PROTEIN, URINE MANUAL NEGATIVE (NEGATIVE); SQUAMOUS EPITHELIAL CELL URINE SMALL AMOUNT /hpf (SMALL AMT); UROBILINOGEN, URINE MANUAL NORMAL (NORMAL)
[2020-01-21 11:01] LABS: HYALINE CAST, URINE NONE SEEN /lpf (0-1); MUCUS, URINE SMALL AMOUNT (NEGATIVE)
[2020-01-23 19:58] LABS: BASO % 0.4 % (0.0-1.0); EOS # 0.1 10^3/uL (0.0-0.5); EOS % 1.6 % (0.0-3.0); HEMATOCRIT 41.8 % (36.0-47.0); HEMOGLOBIN 13.6 g/dl (12.0-15.5); LYMPH # 2.4 10^3/uL (1.5-5.0); LYMPH % 32.3 % (24.0-44.0); MEAN CORPUSCULAR HEMOGLOBIN 29.9 pg (27.0-33.0); MEAN CORPUSCULAR HGB CONC 32.5 g/dl (32.0-36.5); MEAN CORPUSCULAR VOLUME 91.9 fl (80.0-96.0); MONO # 0.7 10^3/uL (0.0-0.8); MONO % 9.6 % (0.0-5.0); NEUTROPHILS # 4.1 10^3/uL (1.5-8.5); NEUTROPHILS % 55.8 % (36.0-66.0); PLATELET COUNT, AUTOMATED 313 10^3/uL (150-450); RED BLOOD COUNT 4.55 10^6/uL (4.00-5.40); WHITE BLOOD COUNT 7.4 10^3/uL (4.0-10.0)
== END 2019-12-09 20:30 | disposition home or self-care (01) ==
LOC: M ED 15:47
DX: K52.9 Noninfective gastroenteritis and colitis, unspecified (principal); K62.89 Other specified diseases of anus and rectum; Z98.890 Other specified postprocedural states; K59.00 Constipation, unspecified; Z88.2 Allergy status to sulfonamides; Z88.1 Allergy status to other antibiotic agents; Z88.8 Allergy status to other drugs, medicaments and biological substances; Z79.899 Other long term (current) drug therapy
CPT/HCPCS: 74177; 80048; 80076; 81000; 81025; 83690; 84703; 85025; 85610; 85730; 96361; 96374; 99284; J2405; Q9963; Q9967

== ENCOUNTER → 2020-02-01 | Outpatient (CLI) | payer OTHER ==
[2020-02-01 10:29] LABS: CHOLESTEROL RISK RATIO 3.032 (<5); URIC ACID 6.9 MG/DL (2.6-6.0)
[2020-02-01 10:35] LABS: TOTAL 25(OH) VITAMIN D 56.6 NG/ML (30.0-100.0)
== END ==
LOC: M LAB 08:50
PROVIDERS: ATTEND Nurse Practitioner Family
DX: E79.0 Hyperuricemia without signs of inflammatory arthritis and tophaceous disease (principal); E78.5 Hyperlipidemia, unspecified; R53.82 Chronic fatigue, unspecified

== ENCOUNTER → 2020-05-26 | Outpatient (CLI) | payer OTHER ==
[2020-05-26 16:47] LABS: BASO # 0.1 10^3/uL (0.0-0.2); BASO % 0.8 % (0.0-1.0); EOS # 0.3 10^3/uL (0.0-0.5); EOS % 2.7 % (0.0-3.0); HEMATOCRIT 43.5 % (36.0-47.0); HEMOGLOBIN 14.3 g/dl (12.0-15.5); LYMPH # 2.4 10^3/uL (1.5-5.0); MEAN CORPUSCULAR HEMOGLOBIN 27.9 pg (27.0-33.0); MEAN CORPUSCULAR HGB CONC 32.9 g/dl (32.0-36.5); MONO # 0.8 10^3/uL (0.0-0.8); MONO % 7.4 % (0.0-5.0); NEUTROPHILS # 6.5 10^3/uL (1.5-8.5); NEUTROPHILS % 64.7 % (36.0-66.0); PLATELET COUNT, AUTOMATED 281 10^3/uL (150-450); RED BLOOD COUNT 5.12 10^6/uL (4.00-5.40); WHITE BLOOD COUNT 10.1 10^3/uL (4.0-10.0)
[2020-05-26 17:15] LABS: C REACTIVE PROTEIN QUANTITATIV 0.65 MG/DL (0.00-0.30); RHEUMATOID FACTOR QUANT < 10.0 IU/ML (<15.0); URIC ACID 7.1 MG/DL (2.6-6.0)
[2020-05-26 17:33] LABS: ERYTHROCYTE SEDIMENTATION RATE 6 mm/hr (0-20)
[2020-05-29 15:11] LABS: ANTINUCLEAR ANTIBODIES DIRECT Negative (Negative); Lyme Disease IgG Ab 18 kDa Ban Absent (.); Lyme Disease IgG Ab 23 kDa Ban Absent (.); Lyme Disease IgG Ab 28 kDa Ban Absent (.); Lyme Disease IgG Ab 30 kDa Ban Absent (.); Lyme Disease IgG Ab 39 kDa Ban Absent (.); Lyme Disease IgG Ab 41 kDa Ban Present (.); Lyme Disease IgG Ab 45 kDa Ban Absent (.); Lyme Disease IgG Ab 58 kDa Ban Absent (.); Lyme Disease IgG Ab 66 kDa Ban Absent (.); Lyme Disease IgG Ab 93 kDa Ban Absent (.); Lyme Disease IgG West Blot Int Negative (.); Lyme Disease IgG/IgM Antibodie <0.91 ISR (0.00-0.90); Lyme Disease IgM Ab 23 kDa Ban Present (.); Lyme Disease IgM Ab 39 kDa Ban Present (.); Lyme Disease IgM Ab 41 kDa Ban Present (.); Lyme Disease IgM Ab Quantitati 1.01 index (0.00-0.79); Lyme Disease IgM West Blot Int Positive (.)
== END ==
LOC: M LAB 16:10
PROVIDERS: ATTEND Physician Assistant Surgical
DX: M25.562 Pain in left knee (principal); R20.0 Anesthesia of skin

== ENCOUNTER → 2020-09-23 | Outpatient (REF) | payer OTHER ==
[~2020-09-23] MED LIST changes: +GABA-283 PO; -GABA-845 PO
[2020-09-23 18:38] LABS: CHOLESTEROL RISK RATIO 2.781 (<5); THYROID STIMULATING HORMONE 1.77 uIU/ML (0.358-3.740); URIC ACID 7.9 MG/DL (2.6-6.0)
== END ==
LOC: M SFHCCLAY 10:31
PROVIDERS: ATTEND Nurse Practitioner Family
DX: E78.5 Hyperlipidemia, unspecified (principal); F41.9 Anxiety disorder, unspecified; M79.10 Myalgia, unspecified site; E55.9 Vitamin D deficiency, unspecified

== ENCOUNTER → 2021-11-15 | Outpatient (CLI) | payer OTHER | LOC: M RAD 13:43 | PROVIDERS: ATTEND Orthopaedic Surgery | DX: S83.242A Other tear of medial meniscus, current injury, left knee, initial encounter (principal); M22.42 Chondromalacia patellae, left knee ==

== ENCOUNTER → 2022-02-15 | Outpatient (REF) | payer OTHER ==
[2022-02-15 18:41] LABS: BASO # 0.1 10^3/uL (0.0-0.2); BASO % 0.9 % (0.0-1.0); EOS # 0.2 10^3/uL (0.0-0.5); EOS % 2.4 % (0.0-3.0); HEMATOCRIT 41.2 % (36.0-47.0); HEMOGLOBIN 13.6 g/dl (12.0-15.5); LYMPH # 2.5 10^3/uL (1.5-5.0); LYMPH % 27.9 % (24.0-44.0); MEAN CORPUSCULAR HEMOGLOBIN 29.1 pg (27.0-33.0); MONO # 0.7 10^3/uL (0.0-0.8); MONO % 7.5 % (2.0-8.0); NEUTROPHILS # 5.4 10^3/uL (1.5-8.5); PLATELET COUNT, AUTOMATED 291 10^3/uL (150-450); RED BLOOD COUNT 4.68 10^6/uL (4.00-5.40); WHITE BLOOD COUNT 8.8 10^3/uL (4.0-10.0)
[2022-02-15 19:25] LABS: ALBUMIN 4.1 GM/DL (3.2-5.2); ALT/SGPT 28 U/L (12-78); BILIRUBIN,TOTAL 0.3 MG/DL (0.2-1.0); BLOOD UREA NITROGEN 18 MG/DL (7-18); CALCIUM LEVEL 9.1 MG/DL (8.5-10.1); CARBON DIOXIDE LEVEL 30 MEQ/L (21-32); CHLORIDE LEVEL 107 MEQ/L (98-107); CHOLESTEROL LEVEL 191 MG/DL (<200); CHOLESTEROL RISK RATIO 2.808 (<5); CREATININE FOR GFR 1.02 MG/DL (0.55-1.30); FREE T4 0.93 NG/DL (0.76-1.46); GLOMERULAR FILTRATION RATE > 60.0 (>58); GLUCOSE, FASTING 72 MG/DL (70-100); HDL CHOLESTEROL 68 MG/DL (>40); LDL CHOLESTEROL 95 MG/DL (<100); NON-HDL-C 123 MG/DL; POTASSIUM SERUM 3.9 MEQ/L (3.5-5.1); SODIUM LEVEL 143 MEQ/L (136-145); TOTAL PROTEIN 7.2 GM/DL (6.4-8.2); TRIGLYCERIDES LEVEL 138 MG/DL (<150)
== END ==
LOC: M SFHCCLAY 15:03
PROVIDERS: ATTEND Nurse Practitioner Family
DX: M25.562 Pain in left knee (principal); G89.29 Other chronic pain; I83.893 Varicose veins of bilateral lower extremities with other complications; E66.3 Overweight

== ENCOUNTER → 2022-03-22 | Outpatient (REF) | payer OTHER ==
[2022-03-22 17:32] LABS: BASO # 0.1 10^3/uL (0.0-0.2); BASO % 1.2 % (0.0-1.0); EOS # 0.2 10^3/uL (0.0-0.5); EOS % 1.9 % (0.0-3.0); HEMATOCRIT 46.6 % (36.0-47.0); HEMOGLOBIN 15.4 g/dl (12.0-15.5); LYMPH # 2.7 10^3/uL (1.5-5.0); LYMPH % 34.8 % (24.0-44.0); MEAN CORPUSCULAR HEMOGLOBIN 29.2 pg (27.0-33.0); MEAN CORPUSCULAR VOLUME 88.3 fl (80.0-96.0); MONO # 0.6 10^3/uL (0.0-0.8); MONO % 7.3 % (2.0-8.0); NEUTROPHILS # 4.2 10^3/uL (1.5-8.5); NEUTROPHILS % 54.5 % (36.0-66.0); PLATELET COUNT, AUTOMATED 310 10^3/uL (150-450); RED BLOOD COUNT 5.28 10^6/uL (4.00-5.40); WHITE BLOOD COUNT 7.7 10^3/uL (4.0-10.0)
[2022-03-22 17:47] LABS: CHLORIDE LEVEL 104 MMOL/L (98-107); POTASSIUM SERUM 3.9 MMOL/L (3.5-5.1); SODIUM LEVEL 143 MMOL/L (136-145)
[2022-03-22 17:48] LABS: ALBUMIN 4.7 G/DL (3.2-5.2); CARBON DIOXIDE LEVEL 29 MMOL/L (20-31)
[2022-03-22 17:52] LABS: BLOOD UREA NITROGEN 17 MG/DL (9-23); URIC ACID 6.3 MG/DL (3.1-7.8)
[2022-03-22 17:53] LABS: CALCIUM LEVEL 9.5 MG/DL (8.5-10.1); GLUCOSE, FASTING 96 MG/DL (60-100)
[2022-03-22 17:54] LABS: ALKALINE PHOSPHATASE 30 U/L (46-116); BILIRUBIN,TOTAL 0.5 MG/DL (0.3-1.2); TOTAL PROTEIN 7.5 G/DL (5.7-8.2)
[2022-03-22 17:55] LABS: ALT/SGPT 21 U/L (7.0-40); AST/SGOT 15 U/L (<34); CREATININE FOR GFR 0.74 MG/DL (0.55-1.30); GLOMERULAR FILTRATION RATE > 60.0 (>58); RHEUMATOID FACTOR QUANT < 3.5 IU/ML (<14)
[2022-03-22 18:34] LABS: ERYTHROCYTE SEDIMENTATION RATE 4 mm/hr (0-20)
== END ==
LOC: M SFHCCLAY 09:34
PROVIDERS: ATTEND Nurse Practitioner Family
DX: M25.50 Pain in unspecified joint (principal)

== ENCOUNTER → 2022-12-13 | Outpatient (REF) | payer OTHER ==
[~2022-12-13] MED LIST changes: -GABA-283 PO; +GABA-284 PO
== END ==
LOC: M SFHCCLAY 10:31
PROVIDERS: ATTEND Nurse Practitioner Family
DX: T14.8XXA Other injury of unspecified body region, initial encounter (principal); X58.XXXA Exposure to other specified factors, initial encounter; Y99.9 Unspecified external cause status; Y92.9 Unspecified place or not applicable; Z53.9 Procedure and treatment not carried out, unspecified reason

== ENCOUNTER → 2023-09-15 | Outpatient (CLI) | payer OTHER | LOC: M RAD 11:02 | PROVIDERS: ATTEND Pain Medicine Pain Medicine | DX: M54.50 Low back pain, unspecified (principal) ==

== ENCOUNTER → 2023-12-27 | Outpatient (REF) | payer OTHER ==
[2023-12-27 17:38] LABS: BASO # 0.1 10^3/uL (0.0-0.2); EOS # 0.2 10^3/uL (0.0-0.5); EOS % 2.7 % (0.0-3.0); HEMATOCRIT 45.4 % (36.0-47.0); HEMOGLOBIN 14.9 g/dl (12.0-15.5); LYMPH # 2.7 10^3/uL (1.5-5.0); LYMPH % 32.7 % (24.0-44.0); MEAN CORPUSCULAR HEMOGLOBIN 28.2 pg (27.0-33.0); MEAN CORPUSCULAR HGB CONC 32.8 g/dl (32.0-36.5); MONO # 0.6 10^3/uL (0.0-0.8); MONO % 7.5 % (2.0-8.0); NEUTROPHILS # 4.6 10^3/uL (1.5-8.5); NEUTROPHILS % 55.7 % (36.0-66.0); PLATELET COUNT, AUTOMATED 308 10^3/uL (150-450); RED BLOOD COUNT 5.28 10^6/uL (4.00-5.40); WHITE BLOOD COUNT 8.3 10^3/uL (4.0-10.0)
[2023-12-27 17:59] LABS: TOTAL IRON BINDING CAPACITY 304 UG/DL (250-425)
[2023-12-27 18:04] LABS: ALBUMIN 4.8 G/DL (3.2-5.2); ALKALINE PHOSPHATASE 47 U/L (46-116); ALT/SGPT 69 U/L (7.0-40); AST/SGOT 25 U/L (<34); BILIRUBIN,TOTAL 0.6 MG/DL (0.3-1.2); BLOOD UREA NITROGEN 15 MG/DL (9-23); CALCIUM LEVEL 10.1 MG/DL (8.5-10.1); CARBON DIOXIDE LEVEL 33 MMOL/L (20-31); CHLORIDE LEVEL 102 MMOL/L (98-107); CHOLESTEROL LEVEL 214 MG/DL (<200); CHOLESTEROL RISK RATIO 3.01 (<5); CREATININE FOR GFR 0.72 MG/DL (0.55-1.30); FOLATE > 24.00 NG/ML (>5.4); FREE T4 1.33 NG/DL (0.89-1.76); GLOMERULAR FILTRATION RATE > 60.0 (>58); GLUCOSE, FASTING 90 MG/DL (60-100); IRON (FE) 81 UG/DL (50-170); LDL CHOLESTEROL 116.8 MG/DL (<100); PERCENT SATURATION 26.6 % (13.2-45.0); SODIUM LEVEL 141 MMOL/L (136-145); THYROID STIMULATING HORMONE 4.159 uIU/ML (0.55-4.78); TOTAL PROTEIN 7.7 G/DL (5.7-8.2); TRIGLYCERIDES LEVEL 131 MG/DL (<150)
== END ==
LOC: M SFHCCLAY 11:26
PROVIDERS: ATTEND Nurse Practitioner Family
DX: T14.8XXA Other injury of unspecified body region, initial encounter (principal); R53.82 Chronic fatigue, unspecified; E66.3 Overweight; E78.5 Hyperlipidemia, unspecified

== ENCOUNTER 2024-02-08 18:50 | Emergency (ER) | payer OTHER ==
[~2024-02-08] VITALS: Ht 165.1 cm; Wt 84.7 kg
[2024-02-08] MEDS ORDERED: PREG25CA3 (18:58)
[2024-02-08] MEDS: KETOROLAC 30 MG/ML 1ML VIAL IM ONE (23:57)
[2024-02-09] MEDS ORDERED: METH-1164 PO (01:36)
[2024-02-09] MEDS ORDERED: KETO10TAB PO (01:36)
[2024-02-09] MEDS ORDERED: DICL20GE TP (01:36)
[2024-02-09 02:32] VITALS: BP 120/85; TEMP 97.9; O2SAT 96
== END 2024-02-09 02:35 | disposition home or self-care (01) ==
LOC: M ED 18:50
DX: S73.191A Other sprain of right hip, initial encounter (principal); S93.601A Unspecified sprain of right foot, initial encounter; S83.91XA Sprain of unspecified site of right knee, initial encounter; S83.92XA Sprain of unspecified site of left knee, initial encounter; Y92.9 Unspecified place or not applicable; Y93.9 Activity, unspecified; Y99.9 Unspecified external cause status; W10.8XXA Fall (on) (from) other stairs and steps, initial encounter; F41.9 Anxiety disorder, unspecified; Z88.8 Allergy status to other drugs, medicaments and biological substances; Z79.2 Long term (current) use of antibiotics; Z79.899 Other long term (current) drug therapy
CPT/HCPCS: 72220; 73502; 73564; 73610; 73630; 96372; 99283; J1885